=== PATIENT | female | born 1970 | race Caucasian/White ===

== ENCOUNTER 2017-04-28 18:26 | Emergency (ER) | payer SELFPAY ==
[~2017-04-28] VITALS: Ht 160 cm; Wt 79.0 kg
[~2017-04-28 18:26] MED LIST: AMOXICILLIN250 M1 PO; AMOXICILLIN500 MG OR; AMOXICILLIN500 MG PO; ANTIVERT25 MG OR; APAP OR; AUGMENTIN875TAB OR; BACTRIM DS1 TAB PO; BACTROBAN2 % EX; BENADRYL 50MG C50 MG PO; BUSPIRONE15 M1; BUSPIRONE15 MG OR; BUTAL OR; CEPHALEXIN500 MG PO; CIPRO500 MG OR; CIPROFLOXACN500 MG PO; DICLOFENAC SODI75 MG PO; DICLOFENAC75 MG; DILAUDID 2MG2 MG/TAB PO; DOXYCYCL HYC100 M4 PO; DOXYCYCL HYC100 MG PO; EC-NAPROSYN500 MG OR; FERROUS FUM324 MG OR; FLEXERIL OR; FLEXERIL PO; GABAPENTIN100 MG PO; GABAPENTIN300 MG PO; IMITREX25 MG PO; INVOKANA300 MG PO; KEFLEX500 M1 PO; KEFLEX500 MG OR; KETOROLAC10 MG OR; LIDODERM5 %; LORTAB 10 PO; LORTAB 1010 MG PO; LORTAB 5 OR; LORTAB5 OR; LYRICA150 MG OR; LYRICA75 MG OR; MEDDOSEPAK OR; MELOXICAM7.5 MG PO; METFORMIN500 MG OR; METFORMIN500 MG PO; METHOCARBAM500 MG PO; MS CONTIN15 M1 PO; NABUMETONE750 MG OR; NAPROSYN500 MG PO; NEURONTIN100 MG PO; NO MEDS; NORCO1 TAB; NORCO1 TAB PO; NYSTATIN100000 M3 TOP; OMEPRAZOLE20 MG OR; PAXIL20 MG OR; PERCOCET 5/325M1 TAB OR; PERCOCET 5/325M1 TAB PO; PRAVACHOL20 MG; PRAVACHOL20 MG PO; PREVACID30 M1 PO; PREVACID30 M2 PO; PROAIR HFA IN; PROMETHAZINE25 M1 PO; ROBITUSSIN AC OR; SERTRALINE50 MG OR; SOMA350 MG OR; TIZANIDINE2 MG PO; TOPAMAX25 MG PO; TOPAMAX50 M1; TOPAMAX50 M1 OR; TRAZODONE100 MG; TRAZODONE100 MG OR; TRAZODONE50 MG PO; TYLENOL325 MG PO; ULTRAM50 M1 PO; VENTOLIN HF1 IN; VITAMIN D1000 UNIT; VITAMIN D1000 UNIT OR; ZOFRAN ODT8 MG PO; ZOLOFT100 MG; ZOLOFT100 MG OR
[2017-04-28] MEDS ORDERED: CODEINE/GUAIFEN1 SOL PO (20:23)
[2017-04-28 20:30] VITALS: BP 117/76
== END 2017-04-28 20:30 | disposition home or self-care (01) | DRG 203 ==
LOC: ED 18:26
DX: J45.909 Unspecified asthma, uncomplicated (principal); E11.9 Type 2 diabetes mellitus without complications

== ENCOUNTER 2017-07-12 09:08 | Emergency (ER) | payer SELFPAY ==
[~2017-07-12] VITALS: Ht 160 cm; Wt 85.0 kg
[~2017-07-12 09:08] MED LIST changes: +CODEINE/GUAIFEN1 SOL PO
[2017-07-12] MEDS ORDERED: TORADOL PO (11:28)
[2017-07-12 11:46] VITALS: BP 130/60
== END 2017-07-12 11:35 | disposition home or self-care (01) | DRG 556 ==
LOC: ED 09:08
DX: M25.522 Pain in left elbow (principal); R20.0 Anesthesia of skin

== ENCOUNTER 2017-12-12 14:08 | Emergency (ER) | payer SELFPAY ==
[~2017-12-12] VITALS: Ht 160 cm; Wt 77.3 kg
[~2017-12-12 14:08] MED LIST changes: +TORADOL PO
[2017-12-12 14:53] LABS: URINE BILIRUBIN - DIPSTICK NEGATIVE (NEGATIVE); URINE BLOOD DIPSTICK NEGATIVE (NEGATIVE); URINE COLOR YELLOW; URINE GLUCOSE - DIPSTICK 500 mg/dL (NEGATIVE); URINE KETONE TRACE mg/dL (NEGATIVE); URINE LEUK ESTERASE NEGATIVE (NEGATIVE); URINE NITRITE - DIPSTICK NEGATIVE (Negative); URINE PROTEIN - DIPSTICK NEGATIVE (NEG-TRACE); URINE SPECIFIC GRAVITY >=1.030; URINE UROBILINOGEN - DIPSTICK 0.2 E.U./dL (0.2)
[2017-12-12] MEDS ORDERED: AUGMENTIN875TAB PO (15:04)
[2017-12-12 15:12] LABS: INFLUENZA A NONE DETECTED (NONE DETECT); INFLUENZA B NONE DETECTED (NONE DETECT); URINE CLARITY CLEAR
[2017-12-12 15:27] VITALS: BP 138/85
== END 2017-12-12 15:27 | disposition home or self-care (01) | DRG 153 ==
LOC: ED 14:08
PROVIDERS: Family Medicine
DX: J02.0 Streptococcal pharyngitis (principal); M79.1 Myalgia; R05 Cough; R50.9 Fever, unspecified

== ENCOUNTER 2018-11-08 21:52 | Emergency (ER) | payer SELFPAY ==
[~2018-11-08] VITALS: Ht 160 cm; Wt 82.0 kg
[~2018-11-08 21:52] MED LIST changes: +AUGMENTIN875TAB PO
[2018-11-08 22:23] LABS: URINE BILIRUBIN - DIPSTICK NEGATIVE (NEGATIVE); URINE BLOOD DIPSTICK NEGATIVE (NEGATIVE); URINE COLOR YELLOW; URINE GLUCOSE - DIPSTICK >=1000 mg/dL (NEGATIVE); URINE KETONE NEGATIVE (NEGATIVE); URINE LEUK ESTERASE NEGATIVE (Negative); URINE NITRITE - DIPSTICK NEGATIVE (Negative); URINE PROTEIN - DIPSTICK NEGATIVE (NEG-TRACE); URINE SPECIFIC GRAVITY >=1.030; URINE UROBILINOGEN - DIPSTICK 0.2 E.U./dL (0.2)
[2018-11-08 22:30] LABS: URINE CLARITY CLEAR
[2018-11-08] MEDS ORDERED: AMOXICILLIN500 MG PO (23:00)
[2018-11-08 23:20] VITALS: BP 136/76
== END 2018-11-08 23:20 | disposition home or self-care (01) | DRG 153 ==
LOC: ED 21:52
PROVIDERS: Emergency Medicine
DX: J02.9 Acute pharyngitis, unspecified (principal); E11.9 Type 2 diabetes mellitus without complications

== ENCOUNTER 2018-12-30 22:32 | Emergency (ER) | payer SELFPAY ==
[~2018-12-30] VITALS: Ht 160 cm; Wt 81.8 kg
[2018-12-30 23:56] LABS: URINE BLOOD DIPSTICK NEGATIVE (NEGATIVE); URINE COLOR YELLOW; URINE GLUCOSE - DIPSTICK 100 mg/dL (NEGATIVE); URINE KETONE TRACE mg/dL (NEGATIVE); URINE LEUK ESTERASE NEGATIVE (NEGATIVE); URINE NITRITE - DIPSTICK NEGATIVE (Negative); URINE PROTEIN - DIPSTICK TRACE mg/dL (NEG-TRACE); URINE SPECIFIC GRAVITY 1.025
[2018-12-30 23:57] LABS: IMMATURE GRANULOCYTES 0.4 % (0.0-5.0); MEAN CELL VOLUME 85.1 fL CALC (80.0-100.0); MEAN CORPUSCULAR HGB CONC 35.3 g/L CALC (32.0-36.0); NEUT# 6.63 thou/uL (2.00-7.15); RED BLOOD COUNT 5.23 mill/uL (4.20-5.60); RED CELL DISTRI WIDTH 12.5 % (11.5-15.5)
[2018-12-30 23:59] LABS: HEMATOCRIT 44.5 % (37.0-47.0); HEMOGLOBIN 15.7 g/dl (12.0-16.0); URINE BILIRUBIN - DIPSTICK NEGATIVE (NEGATIVE)
[2018-12-31 00:10] LABS: ALBUMIN 4.4 g/dL (3.2-5.0); ALKALINE PHOSPHATASE 143 u/l (38-126); ANION GAP 16 (6-22 (CALC)); BUN 11 mg/dL (7-17); BUN/CREATININE RATIO 16 (12-20 (CALC)); CARBON DIOXIDE 24 mmol/l (22-30); CHLORIDE 101 mmol/l (95-108); CREATININE 0.7 mg/dL (0.5-1.0); GFR > 60 ML/MIN (>=60 (CALC)); GFR FOR AFR.AMER. > 60 ML/MIN (>=60 (CALC)); POTASSIUM 4.1 mmol/l (3.5-5.1); SODIUM 137 mmol/l (137-146); TOTAL PROTEIN 7.1 g/dL (6.3-8.2)
[2018-12-31 00:11] LABS: BILIRUBIN, TOTAL 0.8 mg/dL (0.0-1.4); SGOT/AST 35 u/l (14-36)
[2018-12-31] MEDS ORDERED: AMOXICILLIN/PO500 MG PO (01:10)
[2018-12-31 01:15] VITALS: BP 118/62
== END 2018-12-31 01:30 | disposition home or self-care (01) | DRG 153 ==
LOC: ED 22:32
PROVIDERS: Emergency Medicine
DX: J02.0 Streptococcal pharyngitis (principal); R50.9 Fever, unspecified; R05 Cough

== ENCOUNTER 2020-04-04 15:02 | Emergency (ER) | payer OTHER ==
[~2020-04-04] VITALS: Ht 160 cm; Wt 70.0 kg
[~2020-04-04 15:02] MED LIST changes: +AMOXICILLIN/PO500 MG PO
[2020-04-04] MEDS ORDERED: TRICOR145 MG PO (16:33)
[2020-04-04] MEDS ORDERED: KEFLEX500 M1 PO ×2 (16:35)
[2020-04-04] MEDS ORDERED: LANTUS100 UNIT/M SC (16:53)
[2020-04-04 17:00] VITALS: BP 125/79
[2020-05-06] MEDS ORDERED: HUMULIN R500 UNIT/M SC (09:06)
== END 2020-04-04 17:00 | disposition home or self-care (01) ==
LOC: ED 15:02
DX: L02.01 Cutaneous abscess of face (principal); B95.61 Methicillin susceptible Staphylococcus aureus infection as the cause of diseases classified elsewhere; Z86.14 Personal history of Methicillin resistant Staphylococcus aureus infection; E11.9 Type 2 diabetes mellitus without complications; Z79.84 Long term (current) use of oral hypoglycemic drugs

== ENCOUNTER 2020-04-07 10:38 | Emergency (ER) | payer OTHER ==
[~2020-04-07] VITALS: Ht 160 cm; Wt 82.0 kg
[~2020-04-07 10:38] MED LIST changes: +LANTUS100 UNIT/M SC; +TRICOR145 MG PO
[2020-04-07 11:12] VITALS: BP 126/62
[2020-05-06] MEDS ORDERED: HUMULIN R500 UNIT/M SC (09:06)
== END 2020-04-07 11:18 | disposition home or self-care (01) ==
LOC: ED 10:38
DX: Z48.01 Encounter for change or removal of surgical wound dressing (principal); E11.9 Type 2 diabetes mellitus without complications; Z79.4 Long term (current) use of insulin; E11.65 Type 2 diabetes mellitus with hyperglycemia; E78.5 Hyperlipidemia, unspecified

== ENCOUNTER 2020-07-10 17:37 | Inpatient (IN) | payer OTHER ==
[~2020-07-10] VITALS: Ht 160 cm; Wt 80.9 kg
[~2020-07-10 17:37] MED LIST changes: +HUMULIN R500 UNIT/M SC
--- NOTE | 2020-07-10 17:37 | NUR ---
PT AMBULATED TO ROOM WITH STEADY GAIT. MALGORZATA ABD
[2020-07-10 18:05] LABS: HEMOGLOBIN 15.9 g/dl (12.0-16.0); IMMATURE GRANULOCYTES 0.2 % (0.0-5.0); MEAN CELL VOLUME 84.9 fL CALC (80.0-100.0); MEAN CORPUSCULAR HGB 29.3 pG CALC (26.0-32.0); MEAN CORPUSCULAR HGB CONC 34.6 g/dL CAL (32.0-36.0); NEUT# 9.96 thou/uL (2.00-7.15); RED BLOOD COUNT 5.42 mill/uL (4.20-5.60); RED CELL DISTRI WIDTH 12.2 % (11.5-15.5)
[2020-07-10] MEDS ORDERED: CEPHALEXIN500 MG PO (18:06)
[2020-07-10] MEDS ORDERED: LIPITOR40 M1 PO (18:07)
[2020-07-10] MEDS ORDERED: BACTRIM1 TAB PO (18:08)
[2020-07-10] MEDS ORDERED: BUPROPION150 M4 PO (18:09)
[2020-07-10] MEDS ORDERED: PROVENTIL0.083 % IN (18:09)
[2020-07-10] MEDS ORDERED: OZEMPIC2 MG/1.5 M (18:10)
[2020-07-10] MEDS ORDERED: HUMALOG100 UNIT/M SC (18:10)
[2020-07-10 18:20] LABS: ALBUMIN 4.5 g/dL (3.2-5.0); ALKALINE PHOSPHATASE 161 u/l (38-126); ANION GAP 14 (6-22 (CALC)); BILIRUBIN, TOTAL 0.6 mg/dL (0.0-1.4); BUN 11 mg/dL (7-17); BUN/CREATININE RATIO 16 (12-20 (CALC)); CARBON DIOXIDE 26 mmol/l (22-30); CHLORIDE 103 mmol/l (95-108); CREATININE 0.7 mg/dL (0.5-1.0); GFR > 60 ML/MIN (>=60 (CALC)); GFR FOR AFR.AMER. > 60 ML/MIN (>=60 (CALC)); SGOT/AST 28 u/l (14-36); SODIUM 138 mmol/l (137-146)
--- NOTE | 2020-07-10 18:30 | NUR ---
PT STATES THAT SINCE SHE HAS TO INJ BECAUSE SHE IS DM, ONE OF HER INJ SITES GOT INFECTED. RED, HOT, AND PURPLE IN THE CENTER THAT IS REAISED WITH TWO HEADS. ONE IS WHITE AND ONE IS PURPLE/DARK RED. DRAINIAGE IS NOTED COMING OUT OF WOUND, BROWN IN COLOR. UNABLE TO KNOW IF IT HAS SMELL OR NOT(N95 ON). PT STATES IT IS PAIN 10/10 AFIBRILE. IN TEARS IF TOUCHED.
--- NOTE | 2020-07-10 18:50 | NUR ---
GAVE REPORT TO NATI
--- NOTE | 2020-07-10 19:34 | NUR ---
HAND OFF REPORT TO ZEV, PATIENT TO INPATIENT TREATMENT ROOM 272.
[2020-07-10 19:42] VITALS: BP 122/72
--- NOTE | 2020-07-10 20:30 | NUR ---
PATIENT ADMITTED FROM ER VIA STRETCHER WITH ER STAFF IN ATTENDANCE. PATIENT ABLE TO WALK TO BED. PATIENT IS AWAKE ALERT AND ORIENTEDX3. PATIENT ADMITTED FOR ABCESS LEFT LOWER ABD. PATIENT ALSO WITH HISTORY OF DIAB. PATIENT WITH IV SITE TO RIGHT AC INTACT AND HEALTHY AT THIS TIME. PATIENT WITH ABD ABCESS AND ABCESS TO RIGHT AND LEFT GROIN. CULTURE WAS DONE IN ER. PATIENT WITH HISTORY OF MRSA. ACCU-CHECK WAS DONE-259. PATIENT PROVIDED WITH MICROWAVE MEAL AND DRINK. PATIENT ORIENTED TO ROOM AND SURROUNDINGS. INSTRUCTED ON USE OF NURSE CALL LIGHT SYSTEM, TV REMOTE AND PHONE. SAFETY PRECAUTIONS RFEINFORCED. CALL LIGHT IN REACH. WILL CONT TO MONITOR.
--- NOTE | 2020-07-10 21:30 | NUR ---
PATIENT UP AND SHOWERED-PHOTOS TAKEN OF WOUNDS AND PLACED IN CHART. IVF NS HUNG AND INFUSING VIA RAC SITE AT 100CC/HR. CALL LIGHT IN REACH. WILL CONT TO MONITOR,
--- NOTE | 2020-07-10 22:12 | NUR ---
PATIENT RESTING IN BED-MEDICATED FOR PAIN 7/10 ON PAIN SCALE WITH MORPHINE 2MG IVP ORDERED LEFT LOWER ABD WOUND. IVF NS PATENT AND INFUSING VIA RAC IV SITE AT 100CC/HR. SITE IS HEALTHY AT THIS TIME. PATIENT EATING SNACK PROVIDED. CALL IGHT IN REACH. WILL CONT TO MONITOR.
--- NOTE | 2020-07-11 00:40 | NUR ---
APPEARS SLEEPING AT THIS TIME POSITIONED ON SIDE AND EYES CLOSED. RESPS ARE EVEN AND UNLABORED. ZOSYN INFUSING ORDERED. CALL LIGHT IN REACH. WILL CONT TO MONITOR.
--- NOTE | 2020-07-11 02:11 | NUR ---
PATIENT POSITIONED ON LEFT SIDE AT THIS TIME WITH EYES CLOSED. RESPS ARE EVEN AND UNLABORED. APPEARS SLEEPING AT THIS TIME. IVF PATENT AND INFUSING VIA RAC SITE AT 100CC/HR. SITE IS HEALTHY. CALL LIGHT IN REACH. WILL CONT TO MONITOR.
[2020-07-11 04:00] VITALS: BP 108/70
--- NOTE | 2020-07-11 04:19 | NUR ---
PATIENT UP TO BR TO VOID-C/O SEVER HEADACHE-7/10 ON PAIN SCALE. MEDICATED WITH MORPHINE 2MG IVP PER PATIENT REQUEST. OFFERED PATIENT TYLENOL BUT SHANTELL PREFERRED THE MORPHINE. OFFERED PATIENT COOL CLOTH FOR HER FOREHEAD BUT SHE DECLINED AT THIS TIME. IVF PATENT AND INFUSING VIA RAC SITE AT 100CC/HR. SITE IS HEALTHY. LAB WORK WAS DRAWN. CALL LIGHT IN REACH. WILL CONT TO MONITOR.
[2020-07-11 05:19] LABS: IMMATURE GRANULOCYTES 0.3 % (0.0-5.0); MEAN CELL VOLUME 88.1 fL CALC (80.0-100.0); MEAN CORPUSCULAR HGB 29.1 pG CALC (26.0-32.0); MEAN CORPUSCULAR HGB CONC 33.1 g/dL CAL (32.0-36.0); NEUT# 6.48 thou/uL (2.00-7.15); RED BLOOD COUNT 4.77 mill/uL (4.20-5.60); RED CELL DISTRI WIDTH 12.4 % (11.5-15.5)
[2020-07-11 05:25] LABS: HEMOGLOBIN 13.9 g/dl (12.0-16.0)
[2020-07-11 05:41] LABS: ANION GAP 11 (6-22 (CALC)); BUN 10 mg/dL (7-17); BUN/CREATININE RATIO 16 (12-20 (CALC)); CARBON DIOXIDE 27 mmol/l (22-30); CHLORIDE 103 mmol/l (95-108); CREATININE 0.7 mg/dL (0.5-1.0); GFR > 60 ML/MIN (>=60 (CALC)); GFR FOR AFR.AMER. > 60 ML/MIN (>=60 (CALC)); SODIUM 137 mmol/l (137-146)
[2020-07-11 08:09] VITALS: BP 106/91
--- NOTE | 2020-07-11 08:09 | NUR ---
RECIEVED REPORT FROM NARESH BOYER. PT RESTING IN SEMI FOWLERS POSITION UPON ENTERING ROOM. INTRODUCED SELF TO PT AND DISCUSSED POC. PT IS A/O X3 AND ABLE TO VOICE NEEDS. ASSESSMENT AND VITALS COMPLETED. BP 106/91, HR 79, O2 97% ON ROOM AIR. RESPIRATIONS ARE EVEN AND UNLABORED.PT PRESENT WITH NONPRODUCTIVE COUGH. HEART RHYTHM NORMAL. BOWEL SOUNDS ACTIVE IN ALL QUADANTS, LAST RPOERETD BM 07/10/2020. RADIAL AND PEDAL PULSES ARE STRONG. #20G IN RAC RUNNING WITH IVF PER ORDER, SITE APPEARS HEALTHY AND PATENT. PT COMPLAINS OF 8/10 HEADACH. TYLENOL TO BE ADMINISTERED. GLUCOSE RESUTLING IN 254, COVERAGE ADMINISTERED. PT PRESENTS WITH ABCESSES ON INNER LEFT THIGH, RIGHT INNER THIGH AND LOWER LEFT ABD, ABD PAD APPLIED TO LOWER. PT DENIES ANY ADDITIONAL NEEDS AT THIS TIME. ALL SAFETY PRECAUTIONS ARE IN PLACE WITH CALL IN REACH. WILL CONTINUE TO MONITOR LEFT ABD
--- NOTE | 2020-07-11 09:14 | NUR ---
DR CAMPOS AT BEDSIDE DISCUSSING POC WITH PT
--- NOTE | 2020-07-11 10:11 | NUR ---
REASSESSMENT OF HEAD ACHE RESULTING IN 01/12.
--- NOTE | 2020-07-11 12:08 | NUR ---
PT RESTING IN SEMI FOWLERS POSITION WITH EYES CLOSED. REPSIRATIONS ARE EVEN AND UNLABORED ON ROOM AIR. NO SIGNS OF ANY PAIN OR DISCOMFORTS. ALL SAFETY PRECAUTIONS ARE IN PLACE WITH CALL LIGHT IN REACH. WILL CONTINUE TO MONITOR
--- NOTE | 2020-07-11 14:17 | NUR ---
BIOFIRE OBTAINED. PT TOELRATED WELL.
[2020-07-11 15:05] VITALS: BP 103/61
--- NOTE | 2020-07-11 16:03 | NUR ---
PT RESTING IN SEMI FOWLERS POSITION. RESPIRATIONS EVEN AND UNLABORED ON ROOM AIR. PT COMPLAINS OF 9/10 PAIN IN HEAD AND ABD. MORPHINE ADMINISTERED. PT TOELRATED WELL. IVF RUNNING PER ORDER, SITE APPEARS HEALTHY AND PATENT. PT DENIES OF ANY ADDITIONAL NEEDS AT THIS TIME. ALL SFAETY PRECAUTIONS ARE IN PLACE WITH CALL LIGHT IN REACH. WILL CONTINUE TO MONITOR
--- NOTE | 2020-07-11 17:45 | NUR ---
REASSESSMENT OF PAIN RESULTING IN 01/12.
[2020-07-11 19:50] VITALS: BP 111/69
--- NOTE | 2020-07-11 20:02 | NUR ---
PHYSICAL ASSESMENT COMPLETE. PT CURRENTLY DENIES PAIN OR DISCOMFORT. SCHEDULED MEDICATIONS AND PRN MEDICATION ADMINISTERED, SEE E-MAR. PT DENIES ANY NEEDS AT THIS TIME. PLAN OF CARE REVIEWED, PT DENIES QUESTIONS, VERBALIZES UNDERSTANDING. PT CO OF HEADACHE, PROVIDED IORICET. WILL REEVALUATE. ITEMS WITHIN REACH, BED LOCKED IN LOW POSITION W/ BEDRAILS UP X2. CALL HERNANDEZ WITHIN REACH, AGREES TO CALL PRN.
[2020-07-12] VITALS (9 sets, daily range): BP systolic 98–132; BP diastolic 55–73
--- NOTE | 2020-07-12 00:02 | NUR ---
PT LAYING IN BED WITH EYES CLOSED, APPEARS TO BE SLEEPING, APPEARS COMFORTABLE AND IN NO DISTRESS. RESPIRATIONS REGULAR AND UNLABORED. ITEMS REMAIN WITHIN REACH, CALL HERNANDEZ REMAINS WITHIN REACH. BED REMAINS LOCKED AND IN LOW POSITION WITH BEDRAILS UP X2. WILL CONTINUE TO MONITOR.
--- NOTE | 2020-07-12 04:02 | NUR ---
PT RESTING IN BED, NO SIGNS OF DISTRESS NOTED, RESP EVEN AND UNLABORED. PT VOICES NO NEEDS OR COMPLAINTS AT THIS TIME. CALL LIGHT IN REACH,CONTINUE TO MONITOR.
--- NOTE | 2020-07-12 07:05 | NUR ---
REPORT RECEIVED FROM NARESH DEMPSEY.
--- NOTE | 2020-07-12 08:00 | NUR ---
PT RESTING IN SEMI FOWLERS POSITION,A&O X3;VS OBTAINED AND ASSESSMENT COMPLETED;PT DENIES ANY CURRENT PAIN OR DISCOMFORTS,PAIN SCALE AND REPORTING EDUCATED;RESPIRATIONS EVEN AND UNLABORED ON RA,CLEAR LUNG SOUNDS;ABDOMEN DISTENDED/SOFT ON PALPATION AND ACTIVE IN ALL 4 QUADRANTS;ABCESS NOTED TO ABDOMINAL FOLD & BILATERAL GROIN;SITES CLEANSED WITH SALINE AND ABD PAD APPLIED AND SECURED WITH MESS PANTIES;STRONG PEDAL PULSES;# 20G TO RAC INFUSING NS @ 100ML/HR ,SITE APPEARS HEALTHY;ACCUCHECK 193, PT COVERED WITH SLIDING SCALE INSULIN PER ORDER;NPO DIET REINFORCED DUE TO SCHEDULED I&D OF ABCESSES THIS AFTERNOON,PT VERBALIZES UNDERSTANDING;PT DENIES ANY ADDITIONAL NEEDS AND IS ENCOURAGED TO CALL FOR ASSISTANCE IF NEEDED;FALL PRECAUTIONS IN PLACE WITH BED IN THE LOWEST POSITION AND CALL LIGHT IN REACH;WILL CONTINUE TO MONITOR
--- NOTE | 2020-07-12 09:04 | NUR ---
AT BEDSIDE DISCUSSING POC WITH PT.
--- NOTE | 2020-07-12 10:46 | NUR ---
PT TRANSPORTED TO OR IN STABLE CONDITION VIA STRETCHER ACCOMPANIED BY NARESH KASPER.
--- NOTE | 2020-07-12 11:37 | NUR ---
S: JOSE ALFREDO JAVIER is a 50 F who presents with abdominal abscess cellulitis. She has a history of type 2 diabetes, neuropathy, hypercholesterolemia, anxiety, depression and asthma. All medications in patient's chart were reviewed. O: VS: BP 124/58, P 81, RR 24,T 98.7 W 80.9, HT 63 in, Scr= 0.7,CrCl= 97.9 ml/min A: Wound culture shows MRSA, which is sensitive to clindamycin, gentamicin, vancomycin, doxycylcin, tetracycline. P: Patient is on Keflex 500 mg Q6H PO. Vancomycin ordered for pharmacy to dose 1,000 MG Q8H PO. Start Vancomycin 1G IV Q8H. Vancomycin trough is drawn before the 4th dose on 1330. Vancomycin goal trough is between <10-15 mcg/ml>. Pharmacy will follow and or advise on antibiotics use as needed.
--- NOTE | 2020-07-12 12:53 | NUR ---
PT ARRIVED BACK TO MED/SURG ROOM 272 IN STABLE CONDITION VIA STRETCHER ACCOMPANIED BY MAJO,RN;PT A&O X3, ORIENTED TO ROOM AND CALL LIGHT SYSTEM;PT ASSISTED TO HOSPITAL BED WITH MINIMAL ASSISTANCE;RESPIRATIONS SHALLOW ON O2 @ 2L VIA NC;PT REPORTS ABDOMINAL PAIN RATING 10/10 ON THE PAIN SCALE AND PT IS IN TEARS, PT TO BE MEDICATED WITH PRN MORPHINE 2MG IVP PER ORDER;#20G TO RAC INFUSING NS PER ORDER;DRESSINGS TO ABDOMEN AND BILATERAL GROIN CDI;SCD'S PLACED ON PT;WATER PROVIDED PER REQUEST;PT DENIES ANY ADDITIONAL NEEDS AND IS ENCOURAGED TO CALL FOR ASSISTANCE IF NEEDED;CALL LIGHT IN REACH;WILL CONTINUE TO MONITOR
[2020-07-12] MEDS ORDERED: DOXYCYCL HYC100 MG PO (14:08)
[2020-07-12] MEDS ORDERED: BUT/APAP/CAF PO (14:09)
[2020-07-12] MEDS ORDERED: PERCOCET 5/321 COMBO PO (14:09)
--- NOTE | 2020-07-12 15:30 | NUR ---
PT APPEARS TO BE SLEEPING IN SEMI FOWLERS POSITION;RESPIRATIONS APPEAR EVEN AND UNLABORED ON O2 @ 2L VIA NC;NO S/S OF DISTRESS NOTED;IV FLUIDS INFUSING WITH EASE;ALL SAFETY PRECAUTIONS IN PLACE WITH BED IN THE LOWEST POSITION AND CALL LIGHT IN REACH;WILL CONTINUE TO MONITOR
--- NOTE | 2020-07-12 16:30 | NUR ---
PT RESTING IN SEMI FOWLERS POSITION;RESPIRATIONS EVEN AND UNLABORED ON RA;PT REPORTS ABDOMINAL PAIN RATING 5/10 ON THE PAIN SCALE,PT MEDICATED WITH X1 PERCOCET 10/325MG PO AT THIS TIME;ALL DISCHARGE INSTRUCTIONS PROVIDED AT THIS TIME;PT INSTRUCTED TO F/U WITH PCP WITHIN NEXT WEEK, FOR SCHEDULED APPT 07/22/20, TAKE PERCOCET AND FIORCET NEEDED FOR PAIN Q6HRS (RX FOR BOTH PROVIDED,TAKE ABX DIRECTED AND COMPLETE THE COURSE, DRESSING CHANGED TID;PT DENIES ANY QUESTIONS OR NEEDS;IV SITE REMOVED WITH CATHETER INTACT;WHEELCHAIR TO BE PROVIDED FOR D/C HOME;SPOUSE TO TRANSPORT PT HOME;WILL CONTINUE TO MONITOR
--- NOTE | 2020-07-12 17:03 | NUR ---
Discharge instructions given. Patient verbalizes understanding of same. Discharged in stable condition via Wheelchair to Home with family. All belongings sent with pt. PT TRANSPORTED TO [facility] IN STABLE CONDITION VIA WHEELCHAIR ACCOMPANIED BY NADINE VILLEDA;ALL BELONGINGS LEFT WITH PT INCLUDING RX FOR PERCOECT AND FIORCETT;SPOUSE TO TRANSPORT PT HOME.
== END 2020-07-12 17:02 | disposition home or self-care (01) | DRG 581 ==
LOC: ED 17:37 → ED-I 18:36 → ED 18:46 → MS2 18:47
PROVIDERS: Emergency Medicine; ADMIT Internal Medicine; ATTEND Internal Medicine
PROC: 3E02340 Introduction of Influenza Vaccine into Muscle, Percutaneous Approach (ICD-10-PCS; 2020-07-11)
PROC: 0J980ZZ Drainage of Abdomen Subcutaneous Tissue and Fascia, Open Approach (ICD-10-PCS; principal; 2020-07-12)
PROC: 0H9AXZZ Drainage of Inguinal Skin, External Approach (ICD-10-PCS; 2020-07-12)
DX: L02.211 Cutaneous abscess of abdominal wall (principal); L03.311 Cellulitis of abdominal wall; L02.214 Cutaneous abscess of groin; R51.9 Headache, unspecified; R05 Cough; E11.40 Type 2 diabetes mellitus with diabetic neuropathy, unspecified; E78.00 Pure hypercholesterolemia, unspecified; F32.9 Major depressive disorder, single episode, unspecified; F41.9 Anxiety disorder, unspecified; J45.909 Unspecified asthma, uncomplicated; B95.62 Methicillin resistant Staphylococcus aureus infection as the cause of diseases classified elsewhere; Z23 Encounter for immunization; Z86.14 Personal history of Methicillin resistant Staphylococcus aureus infection; Z79.84 Long term (current) use of oral hypoglycemic drugs; Z79.899 Other long term (current) drug therapy; Z20.828 Contact with and (suspected) exposure to other viral communicable diseases
CPT/HCPCS: J1650

== ENCOUNTER 2021-01-03 08:38 | Emergency (ER) | payer OTHER ==
[~2021-01-03] VITALS: Ht 160 cm; Wt 90.0 kg
[~2021-01-03 08:38] MED LIST changes: +BACTRIM1 TAB PO; +BUPROPION150 M4 PO; +BUT/APAP/CAF PO; +HUMALOG100 UNIT/M SC; +LIPITOR40 M1 PO; +OZEMPIC2 MG/1.5 M; +PERCOCET 5/321 COMBO PO; +PROVENTIL0.083 % IN
[2021-01-03] MEDS ORDERED: LIPITOR20 M1 PO (10:17)
[2021-01-03] MEDS ORDERED: trajenta (10:19)
[2021-01-03] MEDS ORDERED: IBUPROFEN600 MG PO (10:51)
[2021-01-03 10:58] VITALS: BP 107/61
== END 2021-01-03 10:58 | disposition home or self-care (01) ==
LOC: ED 08:38
DX: S93.402A Sprain of unspecified ligament of left ankle, initial encounter (principal); E11.9 Type 2 diabetes mellitus without complications; F32.9 Major depressive disorder, single episode, unspecified; W17.2XXA Fall into hole, initial encounter; Y92.007 Garden or yard of unspecified non-institutional (private) residence as the place of occurrence of the external cause; Z86.14 Personal history of Methicillin resistant Staphylococcus aureus infection; Z79.4 Long term (current) use of insulin

== ENCOUNTER 2021-03-06 17:36 | Emergency (ER) | payer OTHER ==
[~2021-03-06 17:36] MED LIST changes: +IBUPROFEN600 MG PO; +LIPITOR20 M1 PO; +trajenta
[2021-03-06 20:38] LABS: HEMATOCRIT 43.5 % (37.0-47.0); HEMOGLOBIN 14.7 g/dl (12.0-16.0); IMMATURE GRANULOCYTES 0.5 % (0.0-5.0); MEAN CELL VOLUME 88.1 fL CALC (80.0-100.0); MEAN CORPUSCULAR HGB 29.8 pG CALC (26.0-32.0); MEAN CORPUSCULAR HGB CONC 33.8 g/dL CAL (32.0-36.0); NEUT# 6.37 thou/uL (2.00-7.15); RED BLOOD COUNT 4.94 mill/uL (4.20-5.60); RED CELL DISTRI WIDTH 13.2 % (11.5-15.5)
[2021-03-06 20:49] LABS: ALBUMIN 4.1 g/dL (3.2-5.0); ALKALINE PHOSPHATASE 103 u/l (38-126); ANION GAP 13 (6-22 (CALC)); BUN 7 mg/dL (7-17); BUN/CREATININE RATIO 10 (12-20 (CALC)); CARBON DIOXIDE 25 mmol/l (22-30); CHLORIDE 102 mmol/l (95-108); CREATININE 0.6 mg/dL (0.5-1.0); GFR > 60 ML/MIN (>=60 (CALC)); GFR FOR AFR.AMER. > 60 ML/MIN (>=60 (CALC)); POTASSIUM 3.4 mmol/l (3.5-5.1); SGOT/AST 19 u/l (14-36); SODIUM 136 mmol/l (137-146); TOTAL PROTEIN 6.8 g/dL (6.3-8.2)
[2021-03-06 20:51] LABS: BILIRUBIN, TOTAL 0.6 mg/dL (0.0-1.4)
[2021-03-06 20:56] LABS: URINE BILIRUBIN - DIPSTICK NEGATIVE (NEGATIVE); URINE BLOOD DIPSTICK SMALL (NEGATIVE); URINE CLARITY CLEAR; URINE COLOR YELLOW; URINE GLUCOSE - DIPSTICK NEGATIVE (NEGATIVE); URINE KETONE NEGATIVE (NEGATIVE); URINE LEUK ESTERASE NEGATIVE (Negative); URINE NITRITE - DIPSTICK NEGATIVE (Negative); URINE PH 5.5 (4.5-8.0); URINE PROTEIN - DIPSTICK NEGATIVE (NEG-TRACE); URINE SPECIFIC GRAVITY >=1.030; URINE UROBILINOGEN - DIPSTICK 0.2 E.U./dL (0.2)
[2021-03-06 21:09] LABS: URINE SQUAMOUS EPITHELIAL CELL FEW EPI/hpf (0-FEW)
[2021-03-06] MEDS ORDERED: AMOXICILLIN500 MG PO (21:23)
[2021-03-06] MEDS ORDERED: CLARITIN10 M2 PO (21:23)
[2021-03-06 21:40] VITALS: BP 115/55
== END 2021-03-06 21:40 | disposition home or self-care (01) ==
LOC: ED 17:36
PROVIDERS: Emergency Medicine
DX: J02.9 Acute pharyngitis, unspecified (principal); E11.9 Type 2 diabetes mellitus without complications; F32.9 Major depressive disorder, single episode, unspecified; Z79.4 Long term (current) use of insulin; Z86.14 Personal history of Methicillin resistant Staphylococcus aureus infection; Z20.822 Contact with and (suspected) exposure to COVID-19; E11.65 Type 2 diabetes mellitus with hyperglycemia; E78.5 Hyperlipidemia, unspecified; F32.4 Major depressive disorder, single episode, in partial remission; G62.9 Polyneuropathy, unspecified

== ENCOUNTER 2021-12-18 18:07 | Emergency (ER) | payer OTHER ==
[~2021-12-18] VITALS: Ht 160 cm; Wt 82.7 kg
[~2021-12-18 18:07] MED LIST changes: +CLARITIN10 M2 PO
[2021-12-18 18:49] VITALS: BP 116/71
[2021-12-18 19:07] LABS: HEMATOCRIT 44.6 % (37.0-47.0); HEMOGLOBIN 15.1 g/dl (12.0-16.0); IMMATURE GRANULOCYTES 0.1 % (0.0-5.0); MEAN CELL VOLUME 87.8 fL CALC (80.0-100.0); MEAN CORPUSCULAR HGB 29.7 pG CALC (26.0-32.0); MEAN CORPUSCULAR HGB CONC 33.9 g/dL CAL (32.0-36.0); NEUT# 10.36 thou/uL (2.00-7.15); RED BLOOD COUNT 5.08 mill/uL (4.20-5.60); RED CELL DISTRI WIDTH 12.9 % (11.5-15.5)
[2021-12-18 19:10] VITALS: BP 117/67
[2021-12-18 19:22] LABS: ALBUMIN 4.2 g/dL (3.2-5.0); ALKALINE PHOSPHATASE 124 u/l (38-126); ANION GAP 16 (6-22 (CALC)); BILIRUBIN, TOTAL 0.6 mg/dL (0.0-1.4); BUN 10 mg/dL (7-17); BUN/CREATININE RATIO 16 (12-20 (CALC)); CARBON DIOXIDE 23 mmol/l (22-30); CHLORIDE 105 mmol/l (95-108); CREATININE 0.6 mg/dL (0.5-1.0); GFR > 60 ML/MIN (>=60 (CALC)); GFR FOR AFR.AMER. > 60 ML/MIN (>=60 (CALC)); LIPASE 70 u/l (23-300); POTASSIUM 3.7 mmol/l (3.5-5.1); SGOT/AST 24 u/l (14-36); SODIUM 140 mmol/l (137-146); TOTAL PROTEIN 7.3 g/dL (6.3-8.2)
[2021-12-18 19:30] VITALS: BP 128/72
[2021-12-18 19:30] LABS: MYOGLOBIN 57 ng/mL (0 - 62)
[2021-12-18 20:40] LABS: URINE BILIRUBIN - DIPSTICK NEGATIVE (NEGATIVE); URINE BLOOD DIPSTICK NEGATIVE (NEGATIVE); URINE COLOR YELLOW; URINE GLUCOSE - DIPSTICK NEGATIVE (NEGATIVE); URINE KETONE 40 mg/dL (NEGATIVE); URINE LEUK ESTERASE NEGATIVE (NEGATIVE); URINE PH 6.5 (4.5-8.0); URINE PROTEIN - DIPSTICK NEGATIVE (NEG-TRACE); URINE SPECIFIC GRAVITY 1.015; URINE UROBILINOGEN - DIPSTICK 0.2 E.U./dL (0.2)
[2021-12-18 20:42] LABS: URINE NITRITE - DIPSTICK NEGATIVE (Negative)
[2021-12-18] MEDS ORDERED: ZOFRAN4 MG/TAB PO (22:07)
[2021-12-18] MEDS ORDERED: DICYCLOMINE HCL20 MG PO (22:07)
[2021-12-18 22:32] VITALS: BP 128/72
== END 2021-12-18 22:32 | disposition home or self-care (01) ==
LOC: ED 18:07
PROVIDERS: Nurse Practitioner
DX: R10.84 Generalized abdominal pain (principal); R11.2 Nausea with vomiting, unspecified; R19.7 Diarrhea, unspecified; E11.9 Type 2 diabetes mellitus without complications; F32.A Depression, unspecified; Z86.14 Personal history of Methicillin resistant Staphylococcus aureus infection; Z79.4 Long term (current) use of insulin; Z79.84 Long term (current) use of oral hypoglycemic drugs
CPT/HCPCS: Q9967; S0164

== ENCOUNTER 2021-12-30 02:04 | Emergency (ER) | payer OTHER ==
[~2021-12-30] VITALS: Ht 160 cm; Wt 72.0 kg
[~2021-12-30 02:04] MED LIST changes: +DICYCLOMINE HCL20 MG PO; +ZOFRAN4 MG/TAB PO
[2021-12-30 03:14] LABS: HEMOGLOBIN 16.4 g/dl (12.0-16.0); IMMATURE GRANULOCYTES 0.2 % (0.0-5.0); MEAN CELL VOLUME 87.3 fL CALC (80.0-100.0); MEAN CORPUSCULAR HGB 29.8 pG CALC (26.0-32.0); MEAN CORPUSCULAR HGB CONC 34.2 g/dL CAL (32.0-36.0); NEUT# 11.1 thou/uL (2.00-7.15); RED BLOOD COUNT 5.5 mill/uL (4.20-5.60); RED CELL DISTRI WIDTH 12.7 % (11.5-15.5)
[2021-12-30 03:33] LABS: ALBUMIN 4.3 g/dL (3.2-5.0); ALKALINE PHOSPHATASE 114 u/l (38-126); AMYLASE 42 u/l (30-110); ANION GAP 14 (6-22 (CALC)); BILIRUBIN, TOTAL 0.4 mg/dL (0.0-1.4); BUN 10 mg/dL (7-17); BUN/CREATININE RATIO 14 (12-20 (CALC)); CHLORIDE 102 mmol/l (95-108); CREATININE 0.7 mg/dL (0.5-1.0); GFR > 60 ML/MIN (>=60 (CALC)); GFR FOR AFR.AMER. > 60 ML/MIN (>=60 (CALC)); LIPASE 110 u/l (23-300); SGOT/AST 24 u/l (14-36); SODIUM 140 mmol/l (137-146)
[2021-12-30 03:35] LABS: CARBON DIOXIDE 28 mmol/l (22-30)
[2021-12-30 05:06] LABS: URINE BILIRUBIN - DIPSTICK NEGATIVE (NEGATIVE); URINE BLOOD DIPSTICK NEGATIVE (NEGATIVE); URINE COLOR YELLOW; URINE GLUCOSE - DIPSTICK 100 mg/dL (NEGATIVE); URINE KETONE NEGATIVE (NEGATIVE); URINE LEUK ESTERASE NEGATIVE (NEGATIVE); URINE PH 6.5 (4.5-8.0); URINE PROTEIN - DIPSTICK NEGATIVE (NEG-TRACE)
[2021-12-30 05:19] LABS: URINE NITRITE - DIPSTICK NEGATIVE (Negative)
[2021-12-30] MEDS ORDERED: ULTRAM50 M1 PO (06:23)
[2021-12-30] MEDS ORDERED: CIPROFLOXACN500 MG PO (06:23)
[2021-12-30] MEDS ORDERED: ONDANSETRON4 MG PO (06:23)
[2021-12-30 06:35] VITALS: BP 127/62
== END 2021-12-30 06:45 | disposition home or self-care (01) ==
LOC: ED 02:04
PROVIDERS: Emergency Medicine
DX: A04.4 Other intestinal Escherichia coli infections (principal); E11.9 Type 2 diabetes mellitus without complications; F32.A Depression, unspecified; Z79.4 Long term (current) use of insulin; Z79.84 Long term (current) use of oral hypoglycemic drugs; Z20.822 Contact with and (suspected) exposure to COVID-19
CPT/HCPCS: J1956; Q9967

== ENCOUNTER 2022-02-04 11:31 | Emergency (ER) | payer OTHER ==
[~2022-02-04] VITALS: Ht 160 cm; Wt 78.0 kg
[~2022-02-04 11:31] MED LIST changes: +ONDANSETRON4 MG PO
[2022-02-04 11:59] VITALS: BP 131/76
[2022-02-04 12:01] VITALS: BP 131/66
[2022-02-04 12:31] VITALS: BP 121/67
[2022-02-04] MEDS ORDERED: NAPROXEN500 MG PO (12:48)
[2022-02-04 14:40] VITALS: BP 106/70
== END 2022-02-04 13:19 | disposition home or self-care (01) ==
LOC: ED 11:31
DX: S83.92XA Sprain of unspecified site of left knee, initial encounter (principal); E11.9 Type 2 diabetes mellitus without complications; F32.A Depression, unspecified; W10.9XXA Fall (on) (from) unspecified stairs and steps, initial encounter; Y92.009 Unspecified place in unspecified non-institutional (private) residence as the place of occurrence of the external cause; Z79.4 Long term (current) use of insulin

== ENCOUNTER 2022-03-31 10:30 | Emergency (ER) | payer OTHER ==
[2022-03-31] VITALS (16 sets, daily range): BP systolic 76–118; BP diastolic 42–66
[~2022-03-31] VITALS: Ht 160 cm; Wt 72.5 kg
[~2022-03-31 10:30] MED LIST changes: +NAPROXEN500 MG PO
[2022-03-31 10:54] LABS: HEMATOCRIT 41.2 % (37.0-47.0); IMMATURE GRANULOCYTES 0.3 % (0.0-5.0); MEAN CELL VOLUME 87.8 fL CALC (80.0-100.0); MEAN CORPUSCULAR HGB 29.9 pG CALC (26.0-32.0); NEUT# 11.97 thou/uL (2.00-7.15); RED BLOOD COUNT 4.69 mill/uL (4.20-5.60); RED CELL DISTRI WIDTH 12.9 % (11.5-15.5)
[2022-03-31 10:55] LABS: URINE BILIRUBIN - DIPSTICK NEGATIVE (NEGATIVE); URINE BLOOD DIPSTICK LARGE (NEGATIVE); URINE COLOR YELLOW; URINE GLUCOSE - DIPSTICK 100 mg/dL (NEGATIVE); URINE KETONE NEGATIVE (NEGATIVE); URINE PROTEIN - DIPSTICK 100 mg/dL (NEG-TRACE); URINE SPECIFIC GRAVITY >=1.030; URINE UROBILINOGEN - DIPSTICK 0.2 E.U./dL (0.2)
[2022-03-31 11:01] LABS: URINE LEUK ESTERASE MODERATE (NEGATIVE); URINE NITRITE - DIPSTICK POSITIVE (Negative)
[2022-03-31 11:03] LABS: URINE WBC >100 WBC/hpf (0-5)
[2022-03-31 11:04] LABS: ALBUMIN 4.2 g/dL (3.2-5.0); ALKALINE PHOSPHATASE 114 u/l (38-126); ANION GAP 15 (6-22 (CALC)); BILIRUBIN, TOTAL 0.7 mg/dL (0.0-1.4); BUN 9 mg/dL (7-17); BUN/CREATININE RATIO 11 (12-20 (CALC)); CARBON DIOXIDE 27 mmol/l (22-30); CHLORIDE 103 mmol/l (95-108); CREATININE 0.8 mg/dL (0.5-1.0); GFR FOR AFR.AMER. > 60 ML/MIN (>=60 (CALC)); GFR OTHER RACES > 60 ML/MIN (>=60 (CALC)); LIPASE 74 u/l (23-300); POTASSIUM 3.7 mmol/l (3.5-5.1); SGOT/AST 21 u/l (14-36); SODIUM 141 mmol/l (137-146); TOTAL PROTEIN 7.2 g/dL (6.3-8.2); URINE BACTERIA FEW hpf; URINE SQUAMOUS EPITHELIAL CELL FEW EPI/hpf (0-FEW)
[2022-03-31] MEDS ORDERED: GABAPENTIN100 MG PO (11:15)
[2022-03-31] MEDS ORDERED: OMNI-PAC300 MG PO (14:10)
== END 2022-03-31 14:26 | disposition home or self-care (01) ==
LOC: ED 10:30
PROVIDERS: Family Medicine
DX: N39.0 Urinary tract infection, site not specified (principal); E11.9 Type 2 diabetes mellitus without complications; F32.A Depression, unspecified; B96.20 Unspecified Escherichia coli [E. coli] as the cause of diseases classified elsewhere; Z79.899 Other long term (current) drug therapy; Z79.84 Long term (current) use of oral hypoglycemic drugs
CPT/HCPCS: Q9967

== ENCOUNTER 2022-04-05 22:03 | Emergency (ER) | payer OTHER ==
[~2022-04-05] VITALS: Ht 160 cm; Wt 100.9 kg
[~2022-04-05 22:03] MED LIST changes: +OMNI-PAC300 MG PO
[2022-04-05 22:12] VITALS: BP 127/68
[2022-04-05 22:43] LABS: HEMOGLOBIN 13.5 g/dl (12.0-16.0); IMMATURE GRANULOCYTES 0.2 % (0.0-5.0); MEAN CELL VOLUME 89.1 fL CALC (80.0-100.0); MEAN CORPUSCULAR HGB 30.1 pG CALC (26.0-32.0); MEAN CORPUSCULAR HGB CONC 33.8 g/dL CAL (32.0-36.0); NEUT# 8.55 thou/uL (2.00-7.15); RED BLOOD COUNT 4.49 mill/uL (4.20-5.60); RED CELL DISTRI WIDTH 12.7 % (11.5-15.5)
[2022-04-05 23:00] VITALS: BP 138/73
[2022-04-05 23:10] LABS: ALBUMIN 4.3 g/dL (3.2-5.0); ALKALINE PHOSPHATASE 133 u/l (38-126); AMYLASE 48 u/l (30-110); ANION GAP 12 (6-22 (CALC)); BUN 7 mg/dL (7-17); BUN/CREATININE RATIO 10 (12-20 (CALC)); CARBON DIOXIDE 28 mmol/l (22-30); CHLORIDE 103 mmol/l (95-108); CREATININE 0.7 mg/dL (0.5-1.0); GFR FOR AFR.AMER. > 60 ML/MIN (>=60 (CALC)); GFR OTHER RACES > 60 ML/MIN (>=60 (CALC)); LIPASE 119 u/l (23-300); POTASSIUM 3.6 mmol/l (3.5-5.1); SGOT/AST 21 u/l (14-36); SODIUM 139 mmol/l (137-146); TOTAL PROTEIN 7.7 g/dL (6.3-8.2)
[2022-04-05 23:16] VITALS: BP 106/55
[2022-04-05 23:16] LABS: BILIRUBIN, TOTAL 0.4 mg/dL (0.0-1.4)
[2022-04-05 23:59] LABS: URINE BILIRUBIN - DIPSTICK NEGATIVE (NEGATIVE); URINE BLOOD DIPSTICK NEGATIVE (NEGATIVE); URINE COLOR YELLOW; URINE GLUCOSE - DIPSTICK 100 mg/dL (NEGATIVE); URINE KETONE NEGATIVE (NEGATIVE); URINE LEUK ESTERASE NEGATIVE (NEGATIVE); URINE PROTEIN - DIPSTICK NEGATIVE (NEG-TRACE); URINE UROBILINOGEN - DIPSTICK 0.2 E.U./dL (0.2)
[2022-04-06] VITALS: BP 116/59
[2022-04-06 00:14] LABS: URINE NITRITE - DIPSTICK NEGATIVE (Negative)
[2022-04-06 00:15] VITALS: BP 122/66
[2022-04-06] MEDS ORDERED: CYCLOBENZAPRINE10 MG PO (00:20)
[2022-04-06] MEDS ORDERED: ULTRAM50 M1 PO (00:20)
[2022-04-06 00:30] VITALS: BP 121/64
[2022-04-06 00:45] VITALS: BP 113/67
[2022-04-06 00:48] VITALS: BP 113/67
== END 2022-04-06 01:23 | disposition home or self-care (01) ==
LOC: ED 22:03
PROVIDERS: Emergency Medicine
DX: M79.18 Myalgia, other site (principal); E11.9 Type 2 diabetes mellitus without complications; F32.A Depression, unspecified; Z86.14 Personal history of Methicillin resistant Staphylococcus aureus infection; Z79.84 Long term (current) use of oral hypoglycemic drugs; Z20.822 Contact with and (suspected) exposure to COVID-19
CPT/HCPCS: Q9967

== ENCOUNTER 2022-12-03 08:22 | Day surgery (SDC) | payer OTHER ==
[~2022-12-03] VITALS: Ht 160 cm; Wt 73.5 kg
[~2022-12-03 08:22] MED LIST changes: +CYCLOBENZAPRINE10 MG PO; +PROTONIX40 M2 PO; +XANAX0.25 MG PO; +ZOLOFT25 MG PO
[2022-12-03 13:21] VITALS: BP 103/65
== END 2022-12-03 11:40 | disposition home or self-care (01) ==
LOC: ENDO 08:22 → ORM 08:45 → ENDO 11:40 → ORM 11:45
PROVIDERS: ATTEND Internal Medicine Gastroenterology
DX: R19.5 Other fecal abnormalities (principal); K29.70 Gastritis, unspecified, without bleeding; K31.7 Polyp of stomach and duodenum; E11.9 Type 2 diabetes mellitus without complications; R74.01 Elevation of levels of liver transaminase levels; Z79.84 Long term (current) use of oral hypoglycemic drugs

== ENCOUNTER 2023-02-04 06:36 | Emergency (ER) | payer OTHER ==
[~2023-02-04] VITALS: Ht 160 cm; Wt 79.6 kg
[2023-02-04 06:57] VITALS: BP 120/82
[2023-02-04 07:45] LABS: URINE BILIRUBIN - DIPSTICK NEGATIVE (NEGATIVE); URINE BLOOD DIPSTICK NEGATIVE (NEGATIVE); URINE COLOR YELLOW; URINE GLUCOSE - DIPSTICK >=1000 mg/dL (NEGATIVE); URINE KETONE NEGATIVE (NEGATIVE); URINE LEUK ESTERASE NEGATIVE (NEGATIVE); URINE NITRITE - DIPSTICK NEGATIVE (Negative); URINE PROTEIN - DIPSTICK NEGATIVE (NEG-TRACE); URINE SPECIFIC GRAVITY <=1.005; URINE UROBILINOGEN - DIPSTICK 0.2 E.U./dL (0.2)
[2023-02-04] MEDS ORDERED: TERBINAFINE250 M1 PO (07:57)
[2023-02-04] MEDS ORDERED: DIFLUCAN150 MG PO (07:57)
[2023-02-04] MEDS ORDERED: METRONIDAZOLE500 MG PO (07:57)
[2023-02-04 08:01] VITALS: BP 120/82
== END 2023-02-04 08:10 | disposition home or self-care (01) ==
LOC: ED 06:36
PROVIDERS: Family Medicine
DX: N76.0 Acute vaginitis (principal); B37.31 Acute candidiasis of vulva and vagina; B35.6 Tinea cruris; E11.9 Type 2 diabetes mellitus without complications; F32.A Depression, unspecified

== ENCOUNTER 2023-03-09 23:31 | Emergency (ER) | payer OTHER ==
[~2023-03-09] VITALS: Ht 160 cm; Wt 83.0 kg
[~2023-03-09 23:31] MED LIST changes: +DIFLUCAN150 MG PO; +METRONIDAZOLE500 MG PO; +TERBINAFINE250 M1 PO
[2023-03-10 00:50] LABS: BASO% 0.5 % (0-3); EOS% 3.5 % (0-8); HEMATOCRIT 40.5 % (37.0-47.0); HEMOGLOBIN 13.7 g/dl (12.0-16.0); IMMATURE GRANULOCYTES 0.3 % (0.0-5.0); LYMPH% 38.3 % (15-41); MEAN CELL VOLUME 85.8 fL CALC (80.0-100.0); MEAN CORPUSCULAR HGB CONC 33.8 g/dL CAL (32.0-36.0); NEUT# 5.35 thou/uL (2.00-7.15); NEUT% 51.4 % (42-76); RED BLOOD COUNT 4.72 mill/uL (4.20-5.60); RED CELL DISTRI WIDTH 12.1 % (11.5-15.5)
[2023-03-10 01:02] LABS: ALBUMIN 3.7 g/dL (3.2-5.0); ALKALINE PHOSPHATASE 141 u/l (38-126); ANION GAP 12 (6-22 (CALC)); BILIRUBIN, TOTAL 0.4 mg/dL (0.02-1.3); BUN 9 mg/dL (7-17); BUN/CREATININE RATIO 15 (12-20 (CALC)); CARBON DIOXIDE 25 mmol/l (22-30); CHLORIDE 103 mmol/l (95-108); CREATININE 0.6 mg/dL (0.5-1.0); GFR FOR AFR.AMER. > 60 ML/MIN (>=60 (CALC)); GFR OTHER RACES > 60 ML/MIN (>=60 (CALC)); POTASSIUM 3.7 mmol/l (3.5-5.1); SGOT/AST 33 u/l (14-36); SODIUM 135 mmol/l (137-146); TOTAL PROTEIN 6.6 g/dL (6.3-8.2)
[2023-03-10] MEDS ORDERED: MONISTAT1 VA (01:07)
[2023-03-10] MEDS ORDERED: METRONIDAZOLE500 MG PO (01:07)
[2023-03-10] MEDS ORDERED: DIFLUCAN150 MG PO ×2 (01:07→01:23)
[2023-03-10 01:17] LABS: URINE COLOR YELLOW
[2023-03-10 01:18] LABS: URINE BILIRUBIN - DIPSTICK NEGATIVE (NEGATIVE); URINE GLUCOSE - DIPSTICK 500 mg/dL (NEGATIVE); URINE KETONE Negative (NEGATIVE); URINE NITRITE - DIPSTICK NEGATIVE (Negative); URINE PH 6.5 (4.5-8.0); URINE PROTEIN - DIPSTICK NEGATIVE (NEG-TRACE); URINE UROBILINOGEN - DIPSTICK 0.2 E.U./dL (0.2)
[2023-03-10 01:19] LABS: URINE BLOOD DIPSTICK NEGATIVE (NEGATIVE)
[2023-03-10] MEDS ORDERED: DESITIN13 % EX (01:26)
[2023-03-10 02:33] VITALS: BP 132/74
[2023-03-11 16:09] LABS: URINE LEUK ESTERASE TRACE (NEGATIVE)
--- NOTE | 2023-03-12 09:41 | NUR ---
pt was seen in the ED for complaints of painful urination. final labs from 03/10/23 show ESLB klebsiella pneumonia with resistances to SMZ/TMP. faxed results to PCP christiane alvarado APRN at [facility] fax [phone]. pt alerted and states she has a f/u soon.
== END 2023-03-10 03:00 | disposition home or self-care (01) ==
LOC: ED 23:31
PROVIDERS: Emergency Medicine
DX: B37.31 Acute candidiasis of vulva and vagina (principal); E11.65 Type 2 diabetes mellitus with hyperglycemia; F32.A Depression, unspecified; Z86.14 Personal history of Methicillin resistant Staphylococcus aureus infection